=== PATIENT | female | born 1960 | race Two or more races ===

== ENCOUNTER 2020-12-02 08:18 | Emergency (ER) | payer OTHER, SELFPAY ==
--- NOTE | ~2020-12-02 | XR_ITS ---
EXAMINATION: XR SHOULDER, LEFT XR HUMERUS, LEFT CLINICAL INFORMATION: Pain COMPARISON: None TECHNIQUE: Left shoulder is imaged in 3 views. The left humerus is imaged in 2 additional views. There are a total of 5 views. FINDINGS: Left shoulder shows no fracture or dislocation or destructive process. The glenohumeral joint appears normal. The acromioclavicular alignment is normal. The left humerus is intact and shows no fracture or destructive process. There is normal bony mineralization. No periostitis. Spurring is present at the distal humeral epicondyles, greater lateral side. There is a small proximal lyndsey humeral calcification approximately 6 cm from the shoulder suggesting calcific tendinosis, either long head biceps or deltoid. XR/XR shoulder LT min 2V IMPRESSION: 1. No fracture, dislocation, or destructive process. 2. Small calcification adjacent to proximal humeral shaft suggesting calcific tendinosis, either long head biceps or deltoid. 3. Spurring distal humeral epicondyles, greater lateral side.
--- NOTE | ~2020-12-02 | XR_ITS ---
EXAMINATION: XR SHOULDER, LEFT XR HUMERUS, LEFT CLINICAL INFORMATION: Pain COMPARISON: None TECHNIQUE: Left shoulder is imaged in 3 views. The left humerus is imaged in 2 additional views. There are a total of 5 views. FINDINGS: Left shoulder shows no fracture or dislocation or destructive process. The glenohumeral joint appears normal. The acromioclavicular alignment is normal. The left humerus is intact and shows no fracture or destructive process. There is normal bony mineralization. No periostitis. Spurring is present at the distal humeral epicondyles, greater lateral side. There is a small proximal lyndsey humeral calcification approximately 6 cm from the shoulder suggesting calcific tendinosis, either long head biceps or deltoid. XR/XR humerus LT IMPRESSION: 1. No fracture, dislocation, or destructive process. 2. Small calcification adjacent to proximal humeral shaft suggesting calcific tendinosis, either long head biceps or deltoid. 3. Spurring distal humeral epicondyles, greater lateral side.
[2020-12-02 08:34] VITALS: BP 155/75; PULSE 51; RESP 18; TEMP 36.3; O2SAT 98; BMI 36.6
--- NOTE | 2020-12-02 08:52 | ED.EXTPRO ---
HPI - Extremity Problem General Chief complaint: Extremity Problem Stated complaint: lt arm pain Time Seen by Provider: 12/02/20 08:43 Source: patient Mode of arrival: ambulatory Limitations: no limitations History of Present Illness HPI Narrative: Patient comes to the emergency room complaining of left shoulder/humerus/neck pain. Patient states it is painful to move. It has been ongoing for about 2-3 days, patient has not taking any medication including Tylenol/ibuprofen. Patient reports falling on the right side of her body approximately 1 week ago. Related Data Previous Rx's Medication Instructions Recorded acetaminophen 500 mg capsule 500 mg PO Q6H PRN #20 cap 12/02/20 albuterol sulfate 90 mcg/actuation 2 puff INHALATION Q4-6H PRN #6.7 g 12/02/20 aerosol inhaler (Ventolin HFA) aripiprazole 15 mg tablet (Abilify) 15 mg PO BEDTIME #30 tab 12/02/20 atorvastatin 20 mg tablet 20 mg PO BEDTIME #30 tab 12/02/20 beclomethasone dipropionate 40 1 inh INHALATION BID #10.6 g 12/02/20 mcg/actuation HFA breath activated aerosol (Qvar RediHaler) bupropion HCl 150 mg tablet,12 hr 150 mg PO BEDTIME #30 tab 12/02/20 sustained-release losartan 50 mg tablet 50 mg PO DAILY #30 tab 12/02/20 melatonin 3 mg capsule 3 mg PO BEDTIME #30 cap 12/02/20 trazodone 50 mg tablet 25 mg PO BEDTIME #30 tab 12/02/20 Allergies Allergy/AdvReac Type Severity Reaction Status Date / Time No Known Allergies Allergy Verified 12/02/20 08:51 Review of Systems Review of Systems: Constitutional : No Weight loss, No Fever, No Chills, No Night Sweats, No Fatigue, No Malaise ENT/Mouth : No Hearing loss, No Ear Pain, No Nasal Congestion, No Sinus Pain, No Hoarseness, No sore throat, No Rhinorrhea, No Swallowing Difficulty Eyes: No Eye Pain, No Swelling, No Redness, No Foreign Body, No Discharge, No Vision Changes Cardiovascular : No Chest Pain, No SOB, No Dyspnea on Exertion, No Orthopnea, No Edema, No Palpitations Respiratory : No Cough, No Sputum, No Wheezing, No Smoke Exposure, No Dyspnea Gastrointestinal : No Nausea, No Vomiting, No Diarrhea, No Constipation, No abdominal Pain, No Hematochezia, No Melena Genitourinary : no irregular bleeding, No Dysuria, No Urinary Frequency, No Hematuria, No Urinary Incontinence, No Urgency, No Flank Pain, No Urinary Flow Changes, No Hesitancy Musculoskeletal complaining of shoulder/proximal left arm, left side of the neck pain, No Myalgias, No Joint Swelling Skin : No Skin Lesions, No rash Neuro : No Weakness, No Numbness, No Paresthesias, No Loss of Consciousness, No Dizziness, No Headache Psych : No Anxiety/Panic, No Depression, No SI/HI/AH/VH, No Social Issues, Heme/Lymph: No Bruising, No Bleeding,No Lymphadenopathy Endocrine : No Polyuria, No Polydipsia, No Temperature Intolerance [facility] Social History Social History Advance Directives: No Physical Exam Vital Signs: Vital Signs: Last Vital Signs Temp 97.4 F 12/02/20 08:34 Pulse 51 12/02/20 08:34 Resp 18 12/02/20 08:34 BP 155/75 H 12/02/20 08:34 Pulse Ox 98 12/02/20 08:34 Body Mass Index 36.6 Const: Other: Appearance: Alert. Oriented X3. No acute distress. Eyes: Pupils equal, round and reactive to light. ENT: Pharynx normal. Neck: Normal inspection. Neck supple. No lymph nodes noted. No crepitus. Patient is able to flex and extend the neck, normal range of motion CVS: Normal heart rate and rhythm. Pulses normal. Normal S1 and S2 Respiratory: No respiratory distress. Breath sounds normal. No Wheezing. No rales Abdomen: Soft and nontender. No rigidity. No distention. good BS x4 Skin: Skin warm and dry. Normal skin color. Normal skin turgor. Extremities: No lower extremity edema. No deformity to left arm, patient is able to flex and extend all fingers of the left hand, wrist, shoulder, able to abduct the left arm. Pain to palpation over the bicipital area, no significant pain over the actual shoulder joint, pain to palpation in the suprascapular area and around the neck on the left side. No deformity, normal palpable radial pulses bilaterally Neuro: Oriented X 3. No motor deficit. No sensory deficit. Moving all extermities. No slurred speech. Course Course Course Narrative: I discussed with the patient that she may have calcific tendinitis. Patient instructed to follow-up with the primary care physician, patient may benefit from a referral to Sports Medicine/Orthopedics for localized steroid injections His before discharge, patient states that she is moving from [place] to [place], does not have a primary care doctor, she ran out of her medications, requesting a refill Discharge Plan Discharge Clinical Impression: Calcific tendinitis of left shoulder, Encounter for medication refill Patient Disposition: Home, Self-Care Instructions: Tendinitis (ED) Additional Instructions: Please follow-up with your primary care physician tomorrow. If you have any worsening or new symptoms, please return to the emergency room or call 911 Prescriptions: New acetaminophen 500 mg capsule 500 mg PO Q6H PRN (Reason: pain) Qty: 20 RF: 0 atorvastatin 20 mg tablet 20 mg PO BEDTIME Qty: 30 RF: 0 losartan 50 mg tablet 50 mg PO DAILY Qty: 30 RF: 0 Qvar RediHaler 40 mcg/actuation HFA aerosol breath activated 1 inh inhalation BID Qty: 10.6 RF: 0 albuterol sulfate [Ventolin HFA] 90 mcg/actuation HFA aerosol inhaler 2 puff inhalation Q4-6H PRN (Reason: shortness of breath or wheezing) Qty: 6.7 RF: 0 melatonin 3 mg capsule 3 mg PO BEDTIME Qty: 30 RF: 0 trazodone 50 mg tablet 25 mg PO BEDTIME Qty: 30 RF: 0 bupropion HCl 150 mg tablet sustained-release 12 hr 150 mg PO BEDTIME Qty: 30 RF: 0 aripiprazole [Abilify] 15 mg tablet 15 mg PO BEDTIME Qty: 30 RF: 0 Interventions: ED Discharge Assessment Last Done: 12/02/20 10:02
[2020-12-02] MEDS: Acetaminophen 325 MG TABLET 650 MG PO (10:00)
== END 2020-12-02 10:42 | disposition home or self-care (01) ==
PROVIDERS: Emergency Provider Emergency Medicine
DX: M75.32 Calcific tendinitis of left shoulder (principal); Z76.0 Encounter for issue of repeat prescription
CPT/HCPCS: 73030; 73060; 99283